=== PATIENT | female | born 1985 | race Caucasian/White ===

== ENCOUNTER 2025-02-06 08:12 | Outpatient (CLI) | payer BC, SELFPAY ==
--- OUTSIDE RECORDS SUMMARY | 2025-02-06 08:16 | XMS_ITS | Encounter Summary ---
Author Organization [facility] Address [address] [place] [address] Care Team Providers Care Feltmaker And Weigher Name Role Phone Unavailable Primary Care Provider Unavailabl e Encounter Details Date Type Department Care Team (Late st Contact Info) Description 01/08/2025 Lab Requisition [facility] - DermPath Lab [address] [facility], [place] [id number] Maria A Higuera DO [address] [facility] [address] [place] [address] Neoplasm of uncertain behavior of skin Social History Tobacco Use Types Packs/Day Years Used Date Smoking Tobacco: Former Cigarettes 10 0 03/27/2001 - 03/27/2011 Smokeless Tobacco: Never Estimated Date of Delivery Comme nts Yes 04/02/2017 Sex and Gender Information Value Date Recorded Sex Assigned at Not on file Legal Sex 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 Gender Identity Not on file Sexual Orientation Not on file documented as of this encounter Plan of Treatment Not on file documented as of this encounter Procedures Procedure Name Priority Date/Time Associated Diagnosis Comments DERMATOPATHOLOGY Routine 01/08/2025 1:45 PM CDT Neoplasm of uncertain behavior of skin documented in this encounter Results * DERMATOPATHOLOGY (01/08/2025 1:45 PM CDT) Case Report Dermatopathology Report Case: [id number] Authorizing Provider: Maria A Higuera DO Collected: 01/08/2025 01:45 PM Ordering Location: [facility] - Received: 01/12/2025 04:31 PM DermPath Lab Pathologist: Fanny Petty MD Specimen: Skin, left neck 1:28 PM [facility] DERMATOPATHOLOGY LABORATORY Final Diagnosis Specimen A. SKIN, left neck: DERMAL SCAR RESIDUAL MELANOCYTIC PROLIFERATION NOT IDENTIFIED (L90.5) 1:28 PM [facility] DERMATOPATHOLOGY LABORATORY at [address] MODEL MAKER APPRENTICE Clinical History Atypical Melanocytic Proliferation. Check margins 1:28 PM [facility] DERMATOPATHOLOGY LABORATORY Gross Description Specimen A: Received is one formalin filled container labeled with the patient's name and designated left neck. The specimen consists of a non-oriented ellipse of skin measuring 21x8x2 mm. The epidermal surface is unremarkable. The margin is inked green. The 12 o'clock and 6 o'clock tips are submitted in cassette 1. The remainder of the ellipse is serially sectioned and submitted in cassette 2. Jar 0. 1:28 PM [facility] DERMATOPATHOLOGY LABORATORY Microscopic Description Specimen A. SKIN, left neck: There are fibroblasts and collagen bundles oriented parallel to the skin surface. There are elongated blood vessels, some of which are oriented perpendicular to the skin surface. No residual melanocytic proliferation is identified. 1:28 PM [facility] DERMATOPATHOLOGY LABORATORY Disclaimer An external and internal positive and negative controls are appropriate for the histochemical, immunohistochemical and immunofluorescence stain(s) in this case (if any), except where stated explicitly. The performance characteristics of the stain(s) cited in this report were developed and its performance characteristic determined by the Dermatopathology Laboratory at [facility], directed by Dr. Roly Blunt. These tests need not be, and therefore are not, approved by the [place] Food and Drug Administration. The tests are used for clinical purposes. Billing Codes Specimen Charges Stain Charges 96502 1 1:28 PM [facility] DERMATOPATHOLOGY LABORATORY Embedded Images 1:28 PM [facility] DERMATOPATHOLOGY LABORATORY Pathology/Cytolo gy TISSUE SPECIMEN FROM SKIN / Unknown 01/08/2025 1:45 PM CDT 01/12/2025 4:31 PM MODEL MAKER APPRENTICE us Maria A Higuera DO LAB - PATHOLOGY/CYTOLOGY ORDERABLES Final Result DERMATOPATHOLOGY LABORATORY [facility] - Department of Derm[facility] [address] [place] [address], [address] [phone] documented in this encounter Visit Diagnoses Diagnosis Neoplasm of uncertain behavior of skin documented in this encounter
--- OUTSIDE RECORDS SUMMARY | 2025-02-06 08:16 | XMS_ITS | Clinical Summary ---
Author Organization [facility] Address [address] [facility] [place] [place] [address] Care Team Providers Care Resin Mixer Name Role Phone Unavailable Primary Care Provider Unavailabl e Source Comments [facility],non-owned Affiliates and Associated Physician Practices is amultiple site organization consisting of ambulatory clinics and hospital sitesin [place], [place], [place] and [place]. This disclosure is being madepursuant to the Care Everywhere program and may not contain all information available regarding this patient. Last updated 17.[facility] [email or web address] (formerly [employer]) Allergies No known active allergies Medications * Be aware that medications may not be up to date on this document. Alwaysverify current medications with the patient. Vit-Fe Fumarate-FA ( VITAMIN PO) Active EVENING PRIMROSE OIL PO Active IRON, FERROUS SULFATE, PO Active Encounters Date Type Department Care Team Description 01/08/2025 Lab Requisition [facility] - DermPath Lab [address] [facility] [place] [id number] Maria A Higuera DO Neoplasm of uncertain behavior of skin from Last 3 Months Family History Relation Name Status Comments Father Alive Mother Alive Social History Tobacco Use Types Packs/Day Years Used Date Smoking Tobacco: Former Cigarettes 10 0 03/27/2001 - 03/27/2011 Smokeless Tobacco: Never Estimated Date of Delivery Comme nts Yes 04/02/2017 Sex and Gender Information Value Date Recorded Sex Assigned at Not on file Legal Sex 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 Gender Identity Not on file Sexual Orientation Not on file Last Filed Vital Signs Vital Sign Reading Time Taken Comments Blood Pressure 122/76 03/27/2017 12:44 PM BENCH JEWELER Pulse 86 03/27/2017 12:44 PM BENCH JEWELER Temperature 36.9 C (98.5 F) 03/27/2017 12:44 PM BENCH JEWELER Respiratory Rate 16 03/27/2017 12:44 PM BENCH JEWELER Oxygen Saturation 98% 03/27/2017 12:44 PM BENCH JEWELER Inhaled Oxygen Concentration - - Weight 79.4 kg (175 lb) 03/27/2017 12:44 PM BENCH JEWELER Height 170.2 cm (5' 7) 03/27/2017 12:44 PM BENCH JEWELER Body Mass Index 27.41 03/27/2017 12:44 PM BENCH JEWELER Plan of Treatment Health Maintenance Due Date Last Done Comments HIV SCREENING 2001 HEPATITIS C SCREENING 09/04/2004 DTAP/TDAP/TD VACCINES (1 - Tdap) 2005 HEPATITIS B VACCINE (1 of 3 - 19+ 3-dose series) 2005 Cervical Cancer Screening 09/10/2007 PAP SMEAR 09/10/2007 HPV VACCINE (1 - 3-dose SCDM series) 2013 PAP with HPV 2016 DEPRESSION SCREENING 03/12/2024 COVID-19 VACCINE (1 - 2024-2 6 season) 2024 INFLUENZA VACCINE (#1) 2024 ZOSTER VACCINE (1 of 2) 2036 Respiratory Syncytial Virus (RSV) Vaccine Pt: or over 60 yrs (1 - 1-dose 75+ series) 2061 HIB VACCINE Aged Out No longer eligi ble based on patient's age to complete this topic MENINGOCOCCAL (Group B) VACC INE SHARED DECISION-MAKING Aged Out No longer eligibl e based on patient's age to complete this topic MENINGOCOCCAL GROUPS A/C/Y/W VACCINE Aged Out No longer eligible b ased on patient's age to complete this topic PNEUMOCOCCAL VACCINE Aged Out No long er eligible based on patient's age to complete this topic Procedures Procedure Name Priority Date/Time Associated Diagnosis Comments DERMATOPATHOLOGY Routine 01/08/2025 1:45 PM CDT Neoplasm of uncertain behavior of skin from Last 3 Months Results * DERMATOPATHOLOGY (01/08/2025 1:45 PM CDT) Case Report Dermatopathology Report Case: [id number] Authorizing Provider: Maria A Higuera DO Collected: 01/08/2025 01:45 PM Ordering Location: [facility] - Received: 01/12/2025 04:31 PM DermPath Lab Pathologist: Fanny Petty MD Specimen: Skin, left neck 1:28 PM [facility] DERMATOPATHOLOGY LABORATORY Final Diagnosis Specimen A. SKIN, left neck: DERMAL SCAR RESIDUAL MELANOCYTIC PROLIFERATION NOT IDENTIFIED (L90.5) 1:28 PM [facility] DERMATOPATHOLOGY LABORATORY at [address] BENCH JEWELER Clinical History Atypical Melanocytic Proliferation. Check margins 1:28 PM [facility] DERMATOPATHOLOGY LABORATORY Gross Description Specimen A: Received [...] in cassette 2. Jar 0. 1:28 PM [facility] DERMATOPATHOLOGY LABORATORY Microscopic Description Specimen A. SKIN, left neck: There are fibroblasts and collagen bundles oriented parallel to the skin surface. There are elongated blood vessels, some of which are oriented perpendicular to the skin surface. No residual melanocytic proliferation is identified. 1:28 PM [facility] DERMATOPATHOLOGY LABORATORY Disclaimer An external and internal positive and negative controls are appropriate for the histochemical, immunohistochemical and immunofluorescence stain(s) in this case (if any), except where stated explicitly. The performance characteristics of the stain(s) cited in this report were developed and its performance characteristic determined by the Dermatopathology Laboratory at [facility], directed by Dr. Roly Blunt. These tests need not be, and therefore are not, approved by the [place] Food and Drug Administration. The tests are used for clinical purposes. Billing Codes Specimen Charges Stain Charges 44960 1 1:28 PM [facility] DERMATOPATHOLOGY LABORATORY Embedded Images 1:28 PM [facility] DERMATOPATHOLOGY LABORATORY Pathology/Cytolo gy TISSUE SPECIMEN FROM SKIN / Unknown 01/08/2025 1:45 PM CDT 01/12/2025 4:31 PM BENCH JEWELER us Maria A Higuera DO LAB - PATHOLOGY/CYTOLOGY ORDERABLES Final Result DERMATOPATHOLOGY LABORATORY [facility] - Department of Dermatology [facility] [address] [facility] 3rd [place] [address], [facility] [phone] from Last 3 Months Insurance LILLIAN
--- OUTSIDE RECORDS SUMMARY | 2025-02-06 08:16 | XMS_ITS | Clinical Summary ---
Author Organization [facility] Address [address] [place] [address] Phone Care Team Providers Care Nurse Case Management Name Role Phone Milo Loaiza MD Primary Care Provider [phone] Allergies No known active allergies Medications vitamin E 400 unit capsule Take 1 Capsule (400 Units) by mouth daily. 08/24/2023 Active multivitamins with iron Tablet Take 1 Tablet by mouth daily. 10/26/2023 Active Active Problems Problem Noted Date Diagnosed Date Family history of breast cancer in sister 2022 Overview (10/11/2022): Genetic testing negative Resolved Problems Problem Noted Date Diagnosed Date Resolved Date Missed menses 07/28/2019 10/16/2019 care of multigravida, antepartum 07/28/2019 03/22/2020 Well woman exam with routine gynecological exam 08/19/2018 07/28/2019 Encounter for supervision of normal first in third trimester 09/21/2016 08/19/2018 Immunizations Immunization Administration Dates Next Due (ADACEL/BOOSTRIX)(10 YR UP) TDAP VACCINE, 0.5ML, IM 08/24/2023 Family History Medical History Relation Name Comments Healthy Brother 1 Healthy Brother 2 Hypertension Father Kidney Disease Father Multiple myeloma Father Cancer Maternal Grandfather prostat e Colon Cancer Maternal Grandfather Hypertension Maternal Grandmother Hypertension Mother Colon Cancer Paternal Grandfather Cancer Paternal Uncle leukemia Breast Cancer Sister 1 Healthy Sister 1 Healthy Sister 2 fran Healthy Sister 3 Healthy Sister 4 No Known Problems Son 1 No Known Problems Son 2 Ovarian Cancer Neg Hx Relation Name Status Comments Brother 1 Alive Brother 2 Alive Father Alive Maternal Grandfather Maternal Grandmother Alive Mother Alive Paternal Grandfather Paternal Grandmother Paternal Uncle Sister 1 Alive Sister 2 fran Alive Sister 3 Alive Sister 4 Alive Son 1 Alive Son 2 Alive Social History Tobacco Use Types Packs/Day Years Used Date Smoking Tobacco: Former Cigarettes 0 Q uit: 03/12/2012 Smokeless Tobacco: Never Tobacco Cessation:Counseling Given: Not Answered Alcohol Use Standard Drinks/Week Comments Yes 0 (1 standard drink = 0.6 oz pur e alcohol) Feeling Safe Answer Date Recorded Within the last year, have y ou been afraid of your partner or ex-partner? No 08/19/2018 Within the last year, have y ou been humiliated or emotionally abused in other ways by your partner or ex-partner? No Within the last year, have y ou been kicked, hit, slapped, or otherwise physically hurt by your partner or ex-partner? No 08/19/2018 Within the last year, have y ou been raped or forced to have any kind of sexual activity by your partner or ex-partner? No 08/19/2018 Financial Resource Strain Answer Date R ecorded How hard is it for you to pa y for the very basics like food, housing, medical care, and heating? Not hard at all 08/19/2018 Food Insecurity Answer Date Recorded Within the past 12 months, y ou worried that your food would run out before you got the money to buy more. Never true 08/20/19 19 Within the past 12 months, t he food you bought just didn't last and you didn't have money to get more. Never true 08/19/2018 Transportation Needs Answer Date Record ed In the past 12 months, has l ack of transportation kept you from medical appointments or from getting medications? No 08/10 In the past 12 months, has l ack of transportation kept you from meetings, work, or from getting things needed for daily living? 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 Not on file Not on file Last Filed Vital Signs Vital Sign Reading Time Taken Comments Blood Pressure 110/78 10/26/2023 11:53 AM CDT Pulse 74 10/26/2023 11:53 AM CDT Temperature 36.9 C (98.5 F) 10/26/2023 11:53 AM CDT Respiratory Rate 16 01/29/2020 7:28 AM COVERAGE SPECIALIST Oxygen Saturation 98% 10/26/2023 11:53 AM CDT Inhaled Oxygen Concentration - - Weight 67.8 kg (149 lb 6.4 oz) 10/26/2023 11:53 AM CDT Height 170.2 cm (5' 7) 10/26/2023 11:53 AM CDT Body Mass Index 23.4 10/26/2023 11:53 AM CDT Plan of Treatment Health Maintenance Due Date Last Done Comments HEPATITIS B VACCINES (1 of 3 - 19+ 3-dose series) 2005 HPV VACCINES (1 - 3-dose SCD M series) 2013 Preventative Visit- Commercial 03/12/2024 0 10/26/2023, 08/24/2023, 04/25/2022, Additional history exists INFLUENZA VACCINE (#1) 2024 PAP SMEAR 10/25/2026 10/26/2023, 08/10, 01/13/2016 CERVICAL CANCER SCREENING 10/25/2028 HPV/Cotest (21-29) 10/25/2028 10/26/2023, 0 08/19/2018, 01/13/2016 HPV/Cotest (30-65) 10/25/2028 10/26/2023, 0 08/19/2018, 01/13/2016 DTAP/TDAP/TD VACCINES (2 - T d or Tdap) 08/23/2033 08/24/2023 Procedures Procedure Name Priority Date/Time Associated Diagnosis Comments CERV/VAG CYTO SCREEN PAP W/HPV Routine 10/26/2023 12:14 PM CDT Pap smear for cervical cancer screening from Last 3 Months or Most Recently Relevant to Health Maintenance Results * CERV/VAG CYTO SCREEN PAP W/HPV (10/26/2023 12:14 PM CDT) CLINICAL INFORMATION [facility] [place] Comment:None given LAST MENSTRUAL PERIOD [facility] [place] Comment:[id number] PREV PAP: [facility] [place] Comment:NONE GIVEN PREV BX: [facility] [place] Comment:NONE GIVEN SOURCE [facility] [place] Comment:ENDOCERVIX ADEQUACY: [facility] [place] Comment: Satisfactory for evaluation. Endocervical/transformation zone component present. PAP INTERP [facility] [place] Comment: Cytology Results: Negative for intraepithelial lesion or malignancy. COMMENT (PAP TEST) [facility] [place] Comment: This Pap test has been evaluated with computer assisted technology. CONSULTING TECHNICAL MANAGER: Qu est [employer] [place] Comment: BES, CT(ASCP) CT screening location: [place] [address] [place] [address] [address]VIEW CONSULTING TECHNICAL MANAGER: Parveen [employer] [place] Comment: TMK, CT(ASCP) CT screening location: [place] [address] [address] [facility] EXPLANATORY NOTE Que [employer] [place] Comment: EXPLANATORY NOTE: The Pap is a screening test for cervical cancer. It is not a diagnostic test and is subject to false negative and false positive results. It is most reliable when a satisfactory sample, regularly obtained, is submitted with relevant clinical findings and history, and when the Pap result is evaluated along with historic and current clinical information. HPV E6/E7 Not Detected Not Detected [facility] Comment: Methodology: Stacker And Sorter Operator-Mediated Amplification This assay detects E6/E7 viral messenger RNA (mRNA) from 14 high-risk HPV types (16,18,31,33,35,39,45,51,52,56,58,59,66,68). Cervical sources are required for HPV testing. If a vaginal source from a patient who has had a total hysterectomy with removal of cervix was submitted, please contact the testing laboratory for alternative testing options. For additional information, please refer to http://education.Hello [employer]/faq/ZTE981l5 (This link if provided for information/ educational purposes only.) Test Performed at: [facility] [address] [place] [address] Lexie XAVIER Genital SWAB OF ENDOCERVIX / Unknown 10/26/2023 12:14 PM CDT 10/27/2023 12:29 AM CDT Milo Loaiza MD PATHOLOGY/CYTOLOGY ORDERABLES F inal Result [facility] [phone] [facility] [address] [place] [address] from Last 3 Months or Most Recently Relevant to Health Maintenance Insurance [facility] BLUE ACCESS/TRUE BLUE PPO Advance Directives For more information, please contact: [phone] * Full Code (Latest Code Status on File) Date Activated Date Inactivated Comments 01/28/2020 1:07 PM 01/29/2020 4:44 PM * Full Code Date Activated Date Inactivated Comments 01/28/2020 5:31 AM 01/28/2020 1:07 PM * Full Code Date Activated Date Inactivated Comments 04/16/2017 8:17 AM 04/17/2017 3:39 PM * Full Code Date Activated Date Inactivated Comments 04/16/2017 1:17 AM 04/16/2017 8:17 AM Care Teams Nurse Case Management Relationship Specialty [place] [address] [facility] [address] [place] [id number] PCP - General Family Practice 09/15/21
--- OUTSIDE RECORDS SUMMARY | 2025-02-06 08:16 | XMS_ITS | Encounter Summary ---
Author Organization [facility] Address [address] [place] [address] Care Team Providers Care [employer] Name Role Phone Unavailable Primary Care Provider Unavailabl e Encounter Details Date Type Department Care Team (Late st Contact Info) Description 10/20/2024 Lab Requisition [facility] - DermPath Lab [address] [place] [address] Maria A Higuera DO [address] [facility] [address] [place] [address] Social History Tobacco Use Types Packs/Day Years Used Date Smoking Tobacco: Former Cigarettes 10 0 03/27/2001 - 03/27/2011 Smokeless Tobacco: Never Estimated Date of Delivery Comme nts Yes 04/02/2017 Sex and Gender Information Value Date Recorded Sex Assigned at Not on file 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[employer] Gender Identity Not on file Sexual Orientation Not on file documented as of this encounter Plan of Treatment Not on file documented as of this encounter Procedures Procedure Name Priority Date/Time Associated Diagnosis Comments DERMATOPATHOLOGY Routine 10/20/2024 3:06 PM CDT documented in this encounter Results * DERMATOPATHOLOGY (10/20/2024 3:06 PM CDT) Case Report Dermatopathology Report Case: [id number] Authorizing Provider: Maria A Higuera DO Collected: 10/20/2024 03:06 PM Ordering Location: [facility] - Received: 10/22/2024 07:12 AM DermPath Lab Pathologist: Kasie Blunt MD Specimens: A) - Skin, left medial thigh B) - Skin, left neck C) - Skin, lower back 4:07 PM [facility] [place] [facility] Final Diagnosis Specimen A. 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 SKIN, left neck: COMPOUND MELANOCYTIC PROLIFERATION; PRESENT AT MARGIN (D48.5) (see microscopic description and comment) Specimen C. SKIN, lower back: COMPOUND MELANOCYTIC NEVUS (D22.5) 4:07 PM [facility] [place] [facility] at [address] [facility] [place] Clinical History A-C: R/O Atypia 4:07 PM [facility] [place] [facility] Gross Description Specimen A: Received is one formalin filled container labeled with the patient's name and designated left medial thigh. The specimen consists of a shave biopsy measuring 7x4x1 mm. Jar 0. Specimen B: Received is one formalin filled container labeled with the patient's name and designated left neck. The specimen consists of a shave biopsy measuring 6x3x1 mm. Jar 0. Specimen C: Received is one formalin filled container labeled with the patient's name and designated lower back. The specimen consists of a shave biopsy measuring 6x4x1 mm. Jar 0. 4:07 PM [facility] [place] [facility] Microscopic Description Specimen A. SKIN, left medial thigh: This is a junctional nevus. There is melanin pigment in the stratum corneum. There is a lentiginous proliferation of melanocytes between nests of cells along the dermal-epidermal junction. There is underlying fibroplasia of the papillary dermis. (Junctional Nacho's Nevus) Specimen B. SKIN, left neck: Sections show a compound melanocytic proliferation. There is a lentiginous proliferation of melanocytes between irregular nests. Scattered melanocytes show evidence of upward migration within the epidermis, which are highlighted on MART-1/Melan A. In the dermis there are irregular nests of melanocytes. PRAME (preferentially expressed antigen of melanoma) shows 1+ staining of the melanocytes. This lesion is present at the margin of the specimen. COMMENT: Because this lesion is present at the margin of the specimen, symmetry and circumscription can not be evaluated. Therefore, a complete but conservative re-excision is recommended to evaluate this lesion in its entirety. Specimen C. SKIN, lower back: There are nests of melanocytes at the dermal-epidermal junction and within the dermis. 5 4:07 PM CDT DERMATOPATHOLOGY LABORATORY Disclaimer An external and internal positive and negative controls are appropriate for the histochemical, immunohistochemical and immunofluorescence stain(s) in this case (if any), except where stated explicitly. The performance characteristics of the stain(s) cited in this report were developed and its performance characteristic determined by the Dermatopathology Laboratory at [facility], directed by Dr. Roly Blunt. These tests need not be, and therefore are not, approved by the [place] Food and Drug Administration. The tests are used for clinical purposes. Billing Codes Specimen Charges Stain Charges 97820 [id number] 65259 1 1 1 [id number] 1 1 5 4:07 PM CDT DERMATOPATHOLOGY LABORATORY Embedded Images 5 4:07 PM CDT DERMATOPATHOLOGY LABORATORY Pathology/Cytology TISSUE SPECIMEN FROM SKIN / Unknown 10/20/2024 3:06 PM CDT 10/22/2024 7:12 AM CDT Miscellaneous samples (specimen) TISSUE SPECIMEN FROM SKIN / Unknown 10/20/2024 3:06 PM CDT 10/22/2024 7:12 AM CDT Miscellaneous samples (specimen) TISSUE SPECIMEN FROM SKIN / Unknown 10/20/2024 3:06 PM CDT 10/22/2024 7:12 AM CDT us Maria A Higuera DO LAB - PATHOLOGY/CYTOLOGY ORDERABLES Final Result DERMATOPATHOLOGY LABORATORY [facility] - Department of Dermatology [facility] Medicine [address] [place] [address], [address] [place] [address], [facility] [phone] documented in this encounter Visit Diagnoses Not on filedocumented in this encounter
== END 2025-02-06 08:13 | disposition home or self-care (01) ==
PROVIDERS: PCP Nurse Practitioner Adult Health; Visit Provider Nurse Practitioner Adult Health
DX: L29.0 Pruritus ani (principal)
CPT/HCPCS: 87045; 87046; 87427

== ENCOUNTER 2025-02-17 08:51 | Outpatient (NON) | payer BC, SELFPAY | END 2025-02-17 08:52 | disposition home or self-care (01) | LOC: ANHLAB 08:52 | PROVIDERS: PCP Nurse Practitioner Adult Health; Visit Provider Nurse Practitioner Adult Health | DX: L29.0 Pruritus ani (principal) | CPT/HCPCS: 87177 ==